=== PATIENT | female | born 1965 | race Caucasian/White ===

== ENCOUNTER 2016-11-04 17:09 | Emergency (ER) | payer SELFPAY ==
--- NOTE | 2016-11-04 17:25 | DR.CP ---
HPI - Time Seen Time seen: 15:25 - PCP Primary Care Physician: Moni Kohler - Complaint Chief Complaint Doctor Comments: Patient states that she has had chest pain for three days; left side, radiating up left neck and left chest. Denies diaphoresis or headache. Chief Complaint:: CHEST PAIN X 3 DAYS WITH HIGH BP. CHEST PAIN HAS GOTTEN WORSE TODAY Self Treatment fo Chief Complaint: Family give nitroglycerin x 3 at home and an extra Cozaar. - Source History Provided: Patient - Mode of Arrival Mode of Arrival: Wheelchair - Timing Onset of Chief Complaint: 11/02/16 PMH - PMH Past Medical History: Yes Past Medical History: Angina, Anxiety, Depression, Hypertension, Sleep Apnea Past Surgical History: Yes Surgical History: Cholecystectomy, MENTALLY RETARDED TEACHER Surgery, Hysterectomy - Family History History of Family Medical Conditions: Yes Family Medical History: Diabetes Mellitus, [place], Coronary Artery Disease, Heart Failure, Hypertension - Social History Does patient currently use any type of tobacco product: No Have you used tobacco products in the last 12 months: No Type of Tobacco Use: None Does any household member use tobacco: No Alcohol Use: None Do you use any recreational Drugs:: No Lives With: Significant Other Lives Where: Home - infectious screening In the last 2 months have you had wt loss of >10#?: NO Have you had fever, night sweats or hemotysis?: No Have you traveled outside the country in the last 6 months?: No Isolation: Standard ROS - Review of Systems Constitutional: negative: Diaphoresis Eyes: No Symptoms Reported ENTM: No Symptoms Reported Respiratoy: No Symptoms Reported Cardiovascular: No Symptoms Reported Gastrointestinal/Abdominal: No Symptoms Reported Genitourinary: No Symptoms Reported Neurological: No Symptoms Reported Musculoskeletal: No Symptoms Reported Integumentary: No Symptoms Reported Hematologic/Lymphatic: No Symptoms Reported Endocrine: No Symptoms Reported Psychiatric: No Symptoms Reported All Other Systems: Reviewed and Negative PE - Vitals Vitals: Temperature 98.4 F Pulse Rate 72 Respiratory Rate 20 Blood Pressure [Left Arm] 163/92 Blood Pressure 18/14 O2 Sat by Pulse Oximetry 99 - General Limitations: No Limitations General Appearance: Alert, In No Apparent Distress - Head Head Exam: Normal Inspection, Atraumatic - Eyes Eye exam: Normal Appearance, PERRL, EOMI - ENT ENT Exam: Normal Exam, Normal Oropharynx - Chest Chest Inspection: Normal Inspection - Respiratory Respiratory Exam: Normal Lung Sounds Bilat Respiratory Exam: Bilateral Clear to Auscultation - Cardiovascular Cardiovascular Exam: Regular Rate, Normal Rhythm Pulse: Normal Edema: Normal - Abdominal Exam Abdominal Exam: Normal Inspection Abdominal Tenderness: negative: RUQ, RLQ, LUQ, LLQ, Epigastrium, Suprapubic, Diffuse, Mild, Moderate, Severe, Other - Extremities Extremities Exam: Normal Inspection - Back Back Exam: Normal Inspection - Neurologic Neurological Exam: Alert, Oriented X3, CN II-XII Intact - Psychiatric Psychiatric Exam: Normal Affect, Normal Mood - Skin Skin Exam: Warm, Dry, Intact Course - Reevaluation 1st: Improved - Consultation Called: 18:34 (Advised to admit for further evalaution) ROR - Labs Reviewed Result Diagrams: 11/04/16 17:54 11/04/16 17:54 Laboratory: WBC 7.3 X10^3/uL (3.6-10.0) 11/04/16 17:54 RBC 4.44 X10^6/uL (3.5-5.4) 11/04/16 17:54 Hgb 13.7 g/dL (12.0-16.0) 11/04/16 17:54 Hct 40.1 % (36.0-47.0) 11/04/16 17:54 MCV 90.3 fL (80.0-100.0) 11/04/16 17:54 MCH 30.8 pg (27.0-34.0) 11/04/16 17:54 MCHC 34.2 g/dL (33.0-35.0) 11/04/16 17:54 RDW 13.9 % (11.6-16.5) 11/04/16 17:54 Plt Count 210 X10^3/uL (150.0-450.0) 11/04/16 17:54 MPV 8.3 fL (7.4-11.0) 11/04/16 17:54 Neut % 62.6 % (42.0-75.0) 11/04/16 17:54 Lymph % 28.4 % (21.0-51.0) 11/04/16 17:54 [place] % 5.9 % (0.0-13.0) 11/04/16 17:54 Eos % 1.9 % (0.9-2.9) 11/04/16 17:54 Baso % 1.2 % (0.2-1.0) H 11/04/16 17:54 Neut # 4.6 x10^3/uL (2.2-4.8) 11/04/16 17:54 Lymph # 2.1 X10^3/uL (1.3-2.9) 11/04/16 17:54 [place] # 0.4 x10^3/uL (0.3-0.8) 11/04/16 17:54 Eos # 0.1 x10^3/uL (0.0-0.2) 11/04/16 17:54 Baso # 0.1 X10^3/uL (0.0-0.1) 11/04/16 17:54 Absolute Nucleated RBC 0.0 /100WBC 11/04/16 17:54 INR Target Range - 11/04/16 17:54 INR 0.92 (0.8-1.3) 11/04/16 17:54 Sodium 138 mmol/L (136-145) 11/04/16 17:54 Corrected Sodium TNP 11/04/16 17:54 Potassium 3.8 mmol/L (3.5-5.1) 11/04/16 17:54 Chloride 102 mmol/L (98-107) 11/04/16 17:54 Carbon Dioxide 30.8 mmol/L (21-32) 11/04/16 17:54 BUN 15 mg/dL (7-18) 11/04/16 17:54 Creatinine 1.01 mg/dL (0.55-1.02) 11/04/16 17:54 Est GFR (MDRD) Af Amer > 60 (>60) 11/04/16 17:54 Est GFR (MDRD) Non-Af > 60 (>60) 11/04/16 17:54 Glucose 109 mg/dL (65-99) H 11/04/16 17:54 Calcium 8.8 mg/dL (8.5-10.1) 11/04/16 17:54 Corrected Calcium 9.7 mg/dL (8.5-10.1) 11/04/16 17:54 Phosphorus 3.4 mg/dL (2.6-4.7) 11/04/16 17:54 Magnesium 1.6 mg/dL (1.7-2.9) L 11/04/16 17:54 Total Bilirubin 0.20 mg/dL (0.2-1.0) 11/04/16 17:54 AST 13 Units/L (15-37) L 11/04/16 17:54 ALT 24 Units/L (12-78) 11/04/16 17:54 Alkaline Phosphatase 82 Units/L (46-116) 11/04/16 17:54 Creatine Kinase 43 Units/L (26-192) 11/04/16 17:54 CK-MB (CK-2) < 1.0 ng/mL (0-4.0) 11/04/16 17:54 CK/CKMB % Calc 2.3 % (<4) 11/04/16 17:54 Troponin I < 0.02 ng/mL (0-1.5) 11/04/16 17:54 Total Protein 6.9 g/dL (6.4-8.2) 11/04/16 17:54 Albumin 2.9 g/dL (3.4-5.0) L 11/04/16 17:54 Globulin 4.0 g/dL (2.5-4.5) 11/04/16 17:54 Albumin/Globulin Ratio 0.7 Ratio (1.1-2.1) L 11/04/16 17:54 - XRAY XRAY Interpreted by: Radiologist (Chest: No cardiopulmonary disease) - EKG Rhythm: NSR Hypertrophy: LVH - Diagnosis Discharge Problem: Chest pain Qualifiers: Chest pain type: unspecified Qualified Code(s): R07.9 - Chest pain, unspecified - Discharge Plan Condition: Stable - Follow ups/Referrals Follow ups/Referrals: ELYSSA KOHLER [Primary Care Provider] - 3 days - Instructions
[2016-11-04] MEDS ORDERED: MORPHINE SULFATE INJ 4 MG IVP ONE ×2 (17:44→19:59)
[2016-11-04 18:08] LABS: BASOPHILS # (AUTO) 0.1 X10^3/uL (0.0-0.1); BASOPHILS % (AUTO) 1.2 % (0.2-1.0); EOSINOPHILS # (AUTO) 0.1 x10^3/uL (0.0-0.2); EOSINOPHILS % (AUTO) 1.9 % (0.9-2.9); HEMATOCRIT 40.1 % (36.0-47.0); HEMOGLOBIN 13.7 g/dL (12.0-16.0); LYMPHOCYTES # (AUTO) 2.1 X10^3/uL (1.3-2.9); LYMPHOCYTES % (AUTO) 28.4 % (21.0-51.0); MEAN CORPUSCULAR HEMOGLOBIN 30.8 pg (27.0-34.0); MEAN CORPUSCULAR HGB CONC 34.2 g/dL (33.0-35.0); MEAN CORPUSCULAR VOLUME 90.3 fL (80.0-100.0); MEAN PLATELET VOLUME 8.3 fL (7.4-11.0); MONOCYTES # (AUTO) 0.4 x10^3/uL (0.3-0.8); MONOCYTES % (AUTO) 5.9 % (0.0-13.0); NEUTROPHILS # (AUTO) 4.6 x10^3/uL (2.2-4.8); NEUTROPHILS % (AUTO) 62.6 % (42.0-75.0); PLATELET COUNT 210 X10^3/uL (150.0-450.0); RED BLOOD COUNT 4.44 X10^6/uL (3.5-5.4); RED CELL DISTRIBUTION WIDTH 13.9 % (11.6-16.5); WHITE BLOOD COUNT 7.3 X10^3/uL (3.6-10.0)
[2016-11-04] MEDS ORDERED: MORPHINE SULFATE INJ 4 MG ONE ×2 (18:17→20:03)
--- NOTE | 2016-11-04 18:18 | RAD ---
HISTORY: Chest pain Study: Single view of the chest. Comparison: 03/19/2012 Findings: Extremely poor inspiratory effort resulting crowding of lung markings and cardiac enlargement. No foc al consolidations, pleural effusions or pneumothorax. Osseous structures demonstrate no acute abnorma lity. IMPRESSION: 1. Limited examination. No evidence of acute cardiopulmonary abnormality. Reported By:
[2016-11-04 18:21] LABS: BLOOD UREA NITROGEN 15 mg/dL (7-18); CALCIUM 8.8 mg/dL (8.5-10.1); CARBON DIOXIDE 30.8 mmol/L (21-32); CHLORIDE 102 mmol/L (98-107); CREATININE 1.01 mg/dL (0.55-1.02); SODIUM 138 mmol/L (136-145); TROPONIN I < 0.02 ng/mL (0-1.5); eGFR BLACK RACES > 60 (>60); eGFR NON BLACK RACES > 60 (>60)
[2016-11-04] MEDS: NS 1000 ML 1,000 ML IV SCH (18:22)
[2016-11-04 18:25] LABS: ALANINE AMINOTRANSFERASE 24 Units/L (12-78); ALBUMIN 2.9 g/dL (3.4-5.0); ALKALINE PHOSPHATASE 82 Units/L (46-116); ASPARTATE AMINO TRANSFERASE 13 Units/L (15-37); CKMB % 2.3 % (<4); COR CA(FOR HYPOALB) 9.7 mg/dL (8.5-10.1); CREATINE KINASE 43 Units/L (26-192); CREATINE KINASE MB < 1.0 ng/mL (0-4.0); MAGNESIUM 1.6 mg/dL (1.7-2.9); PHOSPHORUS 3.4 mg/dL (2.6-4.7); TOTAL PROTEIN 6.9 g/dL (6.4-8.2)
[2016-11-04] MEDS ORDERED: ZOFRAN INJ 4 MG VIAL IVP PRN ×2 (18:27→18:43)
[2016-11-04 22:28] VITALS: BMI 45.2
[2016-11-04] MEDS ORDERED: ONDANSETRON PO PRN (22:39)
[2016-11-04] MEDS ORDERED: ZOFRAN TAB 4 MG PO PRN (22:54)
[2016-11-04] MEDS ORDERED: ZANTAC PO ONE (23:25)
[2016-11-04] MEDS ORDERED: ESTRACE ONE (23:25)
[2016-11-04] MEDS ORDERED: LOPRESSOR TAB 50 MG ONE (23:26)
[2016-11-04] MEDS ORDERED: NORCO 10/325 TAB ONE (23:27)
[2016-11-04] MEDS ORDERED: XANAX ONE (23:27)
[2016-11-04] MEDS ORDERED: CELEXA PO SCH (23:30)
[2016-11-04] MEDS: NORCO 10/325 TAB PO SCH (23:30)
[2016-11-04] MEDS: NEURONTIN CAP 400 MG PO SCH (23:31)
[2016-11-04] MEDS: XANAX PO SCH (23:31)
[2016-11-04] MEDS: ZANTAC PO SCH (23:32)
[2016-11-04] MEDS: LOPRESSOR TAB 50 MG PO SCH (23:32)
[2016-11-04 23:59] LABS: CKMB % 2.6 % (<4); CREATINE KINASE 38 Units/L (26-192); CREATINE KINASE MB < 1.0 ng/mL (0-4.0); TROPONIN I < 0.02 ng/mL (0-1.5)
[2016-11-05] MEDS: NS 1000 ML 1,000 ML IV SCH ×2 (02:29→09:41)
[2016-11-05 05:52] LABS: CKMB % 2.4 % (<4); CREATINE KINASE 41 Units/L (26-192); CREATINE KINASE MB < 1.0 ng/mL (0-4.0); TROPONIN I < 0.02 ng/mL (0-1.5)
[2016-11-05] MEDS: NORCO 10/325 TAB PO SCH ×2 (06:19→13:43)
[2016-11-05] MEDS: NEURONTIN CAP 400 MG PO SCH (08:13)
[2016-11-05] MEDS: XANAX PO SCH (08:13)
[2016-11-05] MEDS: ZANTAC PO SCH (08:14)
[2016-11-05] MEDS: LOPRESSOR TAB 50 MG PO SCH (08:15)
[2016-11-05] MEDS ORDERED: LOVAZA PO SCH (09:00)
[2016-11-05] MEDS ORDERED: COZAAR PO SCH (09:00)
[2016-11-05] MEDS ORDERED: OMEGA PO SCH (09:00)
[2016-11-05] MEDS ORDERED: FATTY ACIDS PO SCH (09:00)
[2016-11-05] MEDS ORDERED: TIZANIDINE HCL PO SCH (09:00)
[2016-11-05] MEDS ORDERED: ASPIRIN EC 81 MG PO SCH (09:00)
[2016-11-05] MEDS ORDERED: METOPROLOL TARTRATE 50 MG PO SCH (09:00)
[2016-11-05] MEDS ORDERED: ZANAFLEX PO SCH (09:00)
[2016-11-05] MEDS ORDERED: PATIENT'S HOME MEDICATION (Alprazolam [Xanax 1 Mg] 1 MG) PO SCH (09:00)
[2016-11-05] MEDS ORDERED: PATIENT'S HOME MEDICATION (Losartan Potassium [Cozaar] 50 MG) PO SCH (09:00)
[2016-11-05] MEDS ORDERED: NEURONTIN CAP 400 MG PO SCH (12:00)
[2016-11-05] MEDS ORDERED: FIORICET TAB PO PRN (13:15)
[2016-11-05 17:14] VITALS: BP 122/72
[2016-11-05] MEDS ORDERED: ESTRADIOL 2 MG PO SCH (21:00)
[2016-11-05] MEDS ORDERED: ESTRACE PO SCH (21:00)
[2016-11-05] MEDS ORDERED: CELEXA PO SCH (21:00)
== END 2016-11-05 16:05 | disposition home or self-care (01) ==
LOC: ER 17:22 → MED/SURG 18:39
PROVIDERS: ADMIT Internal Medicine; ATTEND Internal Medicine
DX: R07.89 Other chest pain (principal); M54.2 Cervicalgia; I10 Essential (primary) hypertension; F41.8 Other specified anxiety disorders; R94.31 Abnormal electrocardiogram [ECG] [EKG]; N95.8 Other specified menopausal and perimenopausal disorders; E66.8 Other obesity; M13.89 Other specified arthritis, multiple sites; E78.2 Mixed hyperlipidemia; G47.33 Obstructive sleep apnea (adult) (pediatric)
CPT/HCPCS: 36415; 71010; 80053; 82550; 82553; 83735; 84100; 84484; 85025; 85610; 93005; 93010; 96365; 96367; 96374; 96375; 99284; A4222; G0378; J2270; J2405

== ENCOUNTER 2017-05-19 17:22 | Emergency (ER) | payer SELFPAY ==
[2017-05-19 17:40] VITALS: BMI 41.1
[2017-05-19] MEDS ORDERED: TORADOL 60 MG VIAL IM ONE (18:31)
--- NOTE | 2017-05-19 18:31 | DR.EXTPAIN ---
HPI - Time seen Time seen: 18:25 - PCP Primary Care Physician: RONDA CAO - HPI Comment HPI Comment: PAIN. RT HIP, RT RIB, RT KNEE AND RT ANKLE AND FOOT. PATIENT IN PAIN. - Complaint/Symptoms Chief Complaint Doctor Comments: FELL OFF SWING BEFOR COMING TO HOSPITAL. Chief Complaint:: PT C/O BEING IN A SWING AND IT FALLING ON HER .. PT C/O RIGHT ANKLE PAIN , AND HIP AND PT HAS ABRASIONS TO HER RIGHT ARM AND EDEMA TO HER RIGHT ANKLE .. - Nurses notes reviewed Nurses Notes Review: Yes - Source History Provided: Patient, Family Member - Mode of arrival Mode of Arrival: Wheelchair - Timing Onset of Chief Complaint: 05/19/17 - Context History of: None - Associated signs and symptoms Associated Signs and Symptoms: Pain, Bruising PMH - PMH Past Medical History: Yes Past Medical History: Angina, Anxiety, Depression, Hypertension, Sleep Apnea Past Medical History Comment: FIBRO, Past Surgical History: Yes Surgical History: Cholecystectomy, BILLING ANALYST Surgery, Hysterectomy - Family History History of Family Medical Conditions: Yes Family Medical History: Hypertension - Social History Does patient currently use any type of tobacco product: No Have you used tobacco products in the last 12 months: No Type of Tobacco Use: None Does any household member use tobacco: No Alcohol Use: None Do you use any recreational Drugs:: No Lives With: Family Lives Where: Home - infectious screening In the last 2 months have you had wt loss of >10#?: NO Have you had fever, night sweats or hemotysis?: No Have you traveled outside the country in the last 6 months?: No Isolation: Standard ROS - Review of Systems Constitutional: No Symptoms Reported Eyes: No Symptoms Reported ENTM: No Symptoms Reported Respiratoy: No Symptoms Reported Cardiovascular: No Symptoms Reported Gastrointestinal/Abdominal: No Symptoms Reported Genitourinary: No Symptoms Reported Neurological: No Symptoms Reported Musculoskeletal: Rib(s), Hip, Knee, Ankle, Foot Integumentary: No Symptoms Reported, Bruises Hematologic/Lymphatic: No Symptoms Reported Endocrine: No Symptoms Reported All Other Systems: Reviewed and Negative PE - Vital Signs Vitals: Temperature 97.7 F Pulse Rate [Left Brachial] 78 Pulse Rate 92 Respiratory Rate 20 Blood Pressure [Left Arm] 157/78 Blood Pressure 143/83 O2 Sat by Pulse Oximetry 95 - General Limitations: No Limitations General Appearance: Alert - Head Head Exam: Normal Inspection - Eyes Eye exam: Normal Appearance - ENT ENT Exam: Normal Oropharynx - Neck Neck Exam: Trachea Midline - Chest Chest Inspection: Symmetric Chest Wall Rise (RT LOWER CHEST.) - Respiratory Respiratory Exam: Bilateral Clear to Auscultation - Cardiovascular Cardiovascular Exam: Regular Rate, Normal Rhythm, Normal Heart Sounds - Abdominal Exam Abdominal Exam: Normal Inspection - Extremities Extremities Exam: Tenderness (RT HIP, THIGH, KNEE, ANKLE AND FOOT.). negative: Full ROM (DECREASE ROM RT ANKLE.) - Lower Extremities Neurovascular/Tendon Exam: Normal Capillary Refill Gait Exam: Observed & Limited by Pain - Back Back Exam: Normal Inspection - Neurological Neurological Exam: Alert, Oriented X3. negative: Motor Sensory Deficit - Psychiatric Psychiatric Exam: Anxious - Skin Skin Exam: Erythema MDM - Differential Diagnosis Differential Diagnosis: Contusion, Fracture, Sprain Course - Treatment Treatment: SEE ORDERS. - Education/Counseling Education/Counseling: Patient, Family, Education Educated On: Treatment, Diagnosis, Needs for Follow Up ROR - XRAY XRAY Interpreted by: Radiologist XRAY Findings: REPORT DISCC WITH PATIENT AND FAMILY. - Diagnosis Discharge Problem: Contusion Qualifiers: Encounter type: initial encounter Contusion area: thigh Laterality: right Qualified Code(s): S70.11XA - Contusion of right thigh, initial encounter Ankle sprain Qualifiers: Encounter type: initial encounter Involved ligament of ankle: unspecified ligament Laterality: right Qualified Code(s): S93.401A - Sprain of unspecified ligament of right ankle, initial encounter Hip sprain Qualifiers: Encounter type: initial encounter Laterality: unspecified laterality Qualified Code(s): S73.109A - Unspecified sprain of unspecified hip, initial encounter Knee sprain Qualifiers: Encounter type: initial encounter Involved ligament of knee: unspecified ligament Laterality: right Qualified Code(s): S83.91XA - Sprain of unspecified site of right knee, initial encounter - Discharge Plan Disposition: 01 HOME, SELF-CARE Condition: Stable Prescriptions: Cyclobenzaprine HCl [FLEXERIL 10 MG *] 10 mg PO TID PRN #20 tab PRN Reason: Hydrocodone-Acet 5 mg/325 mg [[place] 5/325 mg Tab] 1 tab PO Q6H PRN #15 tab PRN Reason: Pain Ibuprofen [MOTRIN TAB 800 MG *] 800 mg PO Q8H PRN #30 tab PRN Reason: Pain/Inflammation - Follow ups/Referrals Follow ups/Referrals: Moni Saravia [Primary Care Provider] - 3 days - Instructions Instructions: Hip Pain, Ankle Sprain, [id number], Knee Sprain, Adult, Easy-to -Read, Knee Sprain, Adult Additional Instructions: return to ed if worse
[2017-05-19] MEDS ORDERED: ADACEL TDaP IM ONE ×2 (18:36→18:44)
[2017-05-19] MEDS ORDERED: TORADOL 60 MG VIAL ONE (18:43)
--- NOTE | 2017-05-19 19:51 | RAD ---
HISTORY: Trauma status post injury. Study: Two views of the right knee. Comparison: None. Findings: No acute cortical disruption or dislocation can be identified. No significant soft tissue swelling o r injury can be seen. IMPRESSION: No acute osseous abnormality. Reported By:
--- NOTE | 2017-05-19 19:53 | RAD ---
HISTORY: Injury status post trauma. Study: Three views of the right foot. Comparison: None. Findings: Large calcaneal enthesophytes. Likely accessory ossicle versus remote trauma at the dorsal navicular bone. No acute cortical disruption or dislocation can be identified. No significant soft tissue swel ling or injury can be seen. IMPRESSION: No acute osseous abnormality. Reported By:
--- NOTE | 2017-05-19 19:54 | RAD ---
HISTORY: Injury status post trauma. Study: Two views of the right hip. Comparison: Right hip series dated December 08, 2013. Findings: Mild osteoarthritis of the bilateral hips. No acute cortical disruption or dislocation can be identif ied. No significant soft tissue swelling or injury can be seen. IMPRESSION: No acute osseous abnormality. Reported By:
--- NOTE | 2017-05-19 19:56 | RAD ---
HISTORY: Injury status post trauma. Study: Four views of the right ribs. Comparison: Chest x-ray dated November 04, 2016. Findings: The cardiac silhouette appears normal. No obvious focal consolidation, pleural effusion, or pneumotho rax. The osseous structures appear intact. Mild scoliotic curvature of the lumbar spine. IMPRESSION: No acute osseous or cardiopulmonary process. Reported By:
--- NOTE | 2017-05-19 20:00 | RAD ---
HISTORY: Injury status post trauma. Study: Three views of the right ankle. Comparison: Right ankle series dated December 07, 2013. Findings: Well corticated osseous body at the inferior portion of the medial malleolus. This most likely repres ents an accessory ossicle versus remote injury. Fragmentation of the dorsal navicular bone likely rep resenting accessory ossicle versus remote trauma appears unchanged. Calcaneal enthesophytes. No acute cortical disruption or dislocation can be identified. No significant soft tissue swelling or injury can be seen. IMPRESSION: No acute osseous abnormality. Reported By:
[2017-05-19 20:57] VITALS: BP 157/78
== END 2017-05-19 21:03 | disposition home or self-care (01) ==
LOC: ER 17:22
DX: S70.11XA Contusion of right thigh, initial encounter (principal); S93.401A Sprain of unspecified ligament of right ankle, initial encounter; S73.109A Unspecified sprain of unspecified hip, initial encounter; S83.91XA Sprain of unspecified site of right knee, initial encounter; W19.XXXA Unspecified fall, initial encounter; Y92.9 Unspecified place or not applicable
CPT/HCPCS: 29540; 71111; 73501; 73560; 73610; 73630; 90471; 96372; 99282; 99283; J1885